=== PATIENT | male | born 1980 | race Hispanic/Latino ===

== ENCOUNTER → 2022-02-28 | Emergency (ER) | payer BC, OTHER ==
[~2022-02-28] VITALS: Ht 180.3 cm; Wt 90.7 kg
[~2022-02-28] MED LIST: MESA1.2T PO
[2022-02-28 15:04] VITALS: BP 145/88
== END | disposition left against medical advice (07) ==
LOC: EDH 14:53
DX: S01.81XA Laceration without foreign body of other part of head, initial encounter (principal); Z53.21 Procedure and treatment not carried out due to patient leaving prior to being seen by health care provider; W22.8XXA Striking against or struck by other objects, initial encounter; Y93.89 Activity, other specified; Y92.89 Other specified places as the place of occurrence of the external cause; Y99.8 Other external cause status

== ENCOUNTER → 2023-06-04 | Outpatient (CLI) | payer BC | END | disposition home or self-care (01) | LOC: RAH 13:18 | PROVIDERS: ATTEND Internal Medicine Gastroenterology | DX: M85.88 Other specified disorders of bone density and structure, other site (principal); K51.90 Ulcerative colitis, unspecified, without complications | CPT/HCPCS: 77080 ==